=== PATIENT | female | born 1990 | race Caucasian/White ===

== ENCOUNTER 2020-10-09 08:50 | Emergency (ER) | payer MEDICAID ==
[~2020-10-09] VITALS: Ht 160 cm; Wt 76.8 kg
[2020-10-09 08:54] VITALS: BP 131/82
[2020-10-09] MEDS ORDERED: ketorolac tromethamine 15mg/ml inj. IM ONE (09:15)
[2020-10-09] MEDS ORDERED: NAPR-56 PO (09:47)
[2020-10-09] MEDS ORDERED: METH-360 PO (09:47)
== END 2020-10-09 10:12 | disposition home or self-care (01) ==
LOC: ER 08:51
DX: M25.511 Pain in right shoulder (principal); M41.9 Scoliosis, unspecified; Z88.5 Allergy status to narcotic agent; Z79.899 Other long term (current) drug therapy
CPT/HCPCS: 73502; 99283; J1885